=== PATIENT | male | born 1955 | race Two or more races ===

== ENCOUNTER 2022-04-12 15:00 | Inpatient (IN) | payer OTHER ==
[~2022-04-12] VITALS: Ht 152.4 cm; Wt 97.1 kg
[~2022-04-12 15:00] MED LIST: PROTONIX40 M1 PO; ZANTAC300 MG PO
[2022-04-12] MEDS ORDERED: LISINOPRIL20 MG (15:09)
[2022-04-12] MEDS ORDERED: SIMVASTATIN20 MG (15:10)
== END 2022-04-17 22:21 | disposition home or self-care (01) | DRG 603 ==
LOC: ER 15:00 → SEC-K 22:07 → MEDJ 22:07
PROVIDERS: ADMIT Internal Medicine; ATTEND Internal Medicine
PROC: B54CZZZ Ultrasonography of Left Lower Extremity Veins (ICD-10-PCS; principal; 2022-04-12)
DX: L03.116 Cellulitis of left lower limb (principal); I82.412 Acute embolism and thrombosis of left femoral vein; I10 Essential (primary) hypertension; E78.5 Hyperlipidemia, unspecified; Z20.822 Contact with and (suspected) exposure to COVID-19

== ENCOUNTER 2022-06-27 07:53 | Emergency (ER) | payer OTHER ==
[~2022-06-27] VITALS: Ht 165.1 cm; Wt 89.8 kg
[~2022-06-27 07:53] MED LIST changes: +LISINOPRIL20 MG; +SIMVASTATIN20 MG
== END 2022-06-27 11:17 | disposition home or self-care (01) ==
LOC: ER 07:53
DX: J06.9 Acute upper respiratory infection, unspecified (principal); Z20.822 Contact with and (suspected) exposure to COVID-19

== ENCOUNTER 2022-07-24 10:12 | Emergency (ER) | payer OTHER ==
[~2022-07-24] VITALS: Ht 165.1 cm; Wt 83.9 kg
[2022-07-24] MEDS ORDERED: XARELTO20 MG (10:23)
[2022-07-24] MEDS ORDERED: HYDROCHLOROTH12.5 MG PO (10:24)
== END 2022-07-24 13:43 | disposition home or self-care (01) ==
LOC: ER 10:12
DX: I80.12 Phlebitis and thrombophlebitis of left femoral vein (principal); I87.2 Venous insufficiency (chronic) (peripheral)

== ENCOUNTER 2022-07-25 07:53 | Outpatient (CLI) | payer OTHER ==
[~2022-07-25 07:53] MED LIST changes: +HYDROCHLOROTH12.5 MG PO; +XARELTO20 MG
== END 2022-07-25 07:54 | disposition home or self-care (01) ==
LOC: NUCLEAR 07:53
PROVIDERS: ATTEND General Practice
DX: I82.401 Acute embolism and thrombosis of unspecified deep veins of right lower extremity (principal)

== ENCOUNTER 2022-12-31 13:34 | Emergency (ER) | payer OTHER ==
[~2022-12-31] VITALS: Ht 165.1 cm; Wt 84.8 kg
[2022-12-31] MEDS ORDERED: FLONASE ALLERG9.9 ML NASAL (17:20)
[2022-12-31] MEDS ORDERED: DOLOGEN 325-11 EACH PO (17:20)
== END 2022-12-31 17:52 | disposition home or self-care (01) ==
LOC: ER 13:34
DX: U07.1 COVID-19 (principal); B34.8 Other viral infections of unspecified site

== ENCOUNTER 2024-11-10 13:59 | Emergency (ER) | payer OTHER ==
[~2024-11-10] VITALS: Ht 165.1 cm; Wt 86.2 kg
[~2024-11-10 13:59] MED LIST changes: +DOLOGEN 325-11 EACH PO; +FLONASE ALLERG9.9 ML NASAL
[2024-11-10] MEDS ORDERED: DIPHENHYDRAMINE HCL 50 MG/ML VIAL 1ML IM ONE (15:30)
[2024-11-10] MEDS ORDERED: METHYLPREDNISOLONE SOD SUCC 125 MG VIAL IM ONE (15:30)
[2024-11-10] MEDS ORDERED: FAMOTIDINE/PF 20 MG/2 ML VIAL IV ONE (15:30)
[2024-11-10] MEDS ORDERED: METHYLPREDNISOLONE SOD SUCC 125 MG VIAL ONE (15:41)
[2024-11-10] MEDS ORDERED: DIPHENHYDRAMINE HCL 50 MG/ML VIAL 1ML ONE (15:41)
[2024-11-10] MEDS ORDERED: FAMOTIDINE/PF 20 MG/2 ML VIAL ONE (15:41)
[2024-11-10] MEDS ORDERED: MEDROLPACK PO (17:21)
[2024-11-10] MEDS ORDERED: BENADRYL ALLERG50 MG PO (17:21)
[2024-11-10] MEDS ORDERED: NORFLEX100MG PO (17:21)
[2024-11-10] MEDS ORDERED: PEPCID AC20 MG PO (17:21)
== END 2024-11-10 18:15 ==
LOC: ER 14:00
DX: R21 Rash and other nonspecific skin eruption (principal); T78.40XA Allergy, unspecified, initial encounter; I10 Essential (primary) hypertension

== ENCOUNTER 2024-12-01 10:43 | Emergency (ER) | payer OTHER ==
[~2024-12-01] VITALS: Ht 165.1 cm; Wt 87.1 kg
[~2024-12-01 10:43] MED LIST changes: +BENADRYL ALLERG50 MG PO; +MEDROLPACK PO; +NORFLEX100MG PO; +PEPCID AC20 MG PO
[2024-12-01] MEDS ORDERED: METHYLPREDNISOLONE SOD SUCC 125 MG VIAL IV ONE (13:15)
[2024-12-01] MEDS ORDERED: DIPHENHYDRAMINE HCL 50 MG/ML VIAL 1ML IV ONE (13:15)
[2024-12-01] MEDS ORDERED: DIPHENHYDRAMINE HCL 50 MG/ML VIAL 1ML ONE ×2 (14:05→14:12)
[2024-12-01] MEDS ORDERED: METHYLPREDNISOLONE SOD SUCC 125 MG VIAL ONE ×2 (14:05→14:12)
[2024-12-01] MEDS ORDERED: ORALONE5 GM TOP (14:11)
[2024-12-01] MEDS ORDERED: BENADRYL ALLERG25 MG PO (14:11)
== END 2024-12-01 14:21 | disposition home or self-care (01) ==
LOC: ER 10:43
DX: L40.9 Psoriasis, unspecified (principal); L30.8 Other specified dermatitis; R21 Rash and other nonspecific skin eruption; I10 Essential (primary) hypertension